=== PATIENT | female | born 2000 | race Caucasian/White ===

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

== ENCOUNTER 2023-12-14 18:22 | Emergency (ER) | payer BC, OTHER ==
[2023-12-14 19:06] LABS: HEMATOCRIT 41.4 % (32.4-45.2); HEMOGLOBIN 13.8 G/dL (10.7-15.3); MCH 31.6 pg (25.7-33.7); MCHC 33.2 g/dl (32.0-36.0); MEAN CELL VOLUME 95.2 fl (80-96); PLATELET COUNT 194.3 10^3/uL (134-434); RBC 4.35 10^6/uL (3.60-5.2); RDW 13.1 % (11.6-15.6); WHITE BLOOD COUNT 8.8 10^3/uL (4.0-10.8)
[2023-12-14 19:24] LABS: ALBUMIN 4.4 g/dl (3.4-5.0); ALK PHOS 29 U/L (45-117); ANION GAP 8 mmol/L (4-13); BILIRUBIN,TOTAL 0.4 mg/dl (0.2-1); CALCIUM 9.9 mg/dl (8.5-10.1); CHLORIDE 102 mmol/L (98-107); CO2 27 mmol/L (21-32); CREATININE 0.6 mg/dl (0.6-1.3); GLUCOSE,RANDOM 86 mg/dl (74-106); POTASSIUM 3.7 mmol/L (3.5-5.1); SGOT/AST 15 U/L (15-37); SGPT/ALT 11 U/L (7-52); SODIUM 137 mmol/L (136-145); TOT PROT 6.8 g/dl (6.4-8.2)
[2023-12-14 19:25] VITALS: BMI 18.2
[2023-12-14 19:25] LABS: PLATELET ESTIMATE ADEQUATE
[2023-12-14 21:13] VITALS: BP 108/71; PULSE 78; RESP 16; TEMP 97.9
== END 2023-12-14 21:42 | disposition home or self-care (01) ==
LOC: FER 18:22
DX: R07.89 Other chest pain (principal); R20.0 Anesthesia of skin
CPT/HCPCS: 36415; 71045-TC-FY; 80053; 82550; 83735; 84439; 84443; 84484; 85027; 93005; 99285-25